=== PATIENT | male | born 1940 | race Caucasian/White ===

== ENCOUNTER 2018-01-16 13:35 | Emergency (ER) | payer OTHER ==
[~2018-01-16] VITALS: Ht 170.2 cm; Wt 66.2 kg
[2018-01-16 13:38] VITALS: TEMP 36.8; Ht 170.2 cm; Wt 66.2 kg
--- NOTE | 2018-01-16 14:09 | EMERGENCY ROOM VISIT NOTE ---
History Report prepared by Christie: Nati Feldman Under the Supervision of: Dr. Tamir Santana M.D. First contact with patient: 13:42 Chief Complaint: GROIN PAIN Stated Complaint: GROIN PAIN History of Present Illness The patient is a 77 year old white male with a past medical history of Parkinson 's and back surgery who presents to the ED with a cc of constant groin pain beginning 6 days ago. He notes the pain began 1 day after a fall down 6 steps onto his backside. The patient reports the pain worsens when weight bearing, and makes it difficult to walk. He states he had major back surgery over 2 days at [facility] 3 months ago, with no complications. The patient notes he has been experiencing dizziness and tremors recently, and was recently diagnosed with Parkinson's, which he takes medication 4x a day for. Source of History: patient Onset: 6 days Position: pelvis (groin) Timing: constant Modifying Factors (Worsening): other (weight bearing) Note: Associated symptoms: chronic dizziness and tremors Review of Systems See HPI for pertinent positives and negatives. A total of ten systems were reviewed and were otherwise negative. Past Medical & Surgical Medical Problems: (1) Groin pain (2) Parkinson disease Surgical Problems: (1) History of back surgery Family History No pertinent family history stated. Social History Smoking Status: Never Smoker Smokeless Tobacco Use: No Marital Status: Housing Status: lives with family Occupation Status: retired Current/Historical Medications Scheduled Carbidopa-Levodopa (Sinemet 25MG/250MG), 1 TAB PO QID Finasteride (Proscar), 1 TAB PO DAILY Folic Acid (Folic Acid), 1 TAB PO DAILY Omeprazole (Prilosec), 60 MG PO DAILY Rosuvastatin Calcium (Crestor), 1 TAB PO DAILY Allergies Coded Allergies: No Known Allergies (Unverified , 01/16/18) Physical Exam Vital Signs Date Time Temp Pulse Resp B/P (MAP) Pulse Ox O2 Delivery O2 Flow Rate FiO2 01/16/18 14:54 62 17 134/76 98 01/16/18 14:38 62 17 134/76 98 Room Air 01/16/18 13:38 36.8 74 17 106/70 95 Room Air Physical Exam GENERAL: Awake, alert, well-appearing, NAD HENT: Normocephalic, atraumatic. EYES: Normal conjunctiva. Sclera non-icteric. PERRL. No anisocoria. NECK: Supple. No nuchal rigidity. FROM. RESPIRATORY: CTAB, no rhonchi, wheezing, crackles CARDIAC: RRR, no MRG ABDOMEN: Soft, NTND, BS+ MSK: No chest wall TTP, no LE edema. Mild reproducible pain over inferior portion of R pelvis, NEURO: GCS 15, CN 2-12 intact, moves all 4s on command SKIN: No rash or jaundice noted. Bronzed appearance. : Circumcised, no penile or scrotal or testicular pain or swelling. No palpable hernias or masses present. Medical Decision & Procedures ED Course 1356: The patient was evaluated in room B10. A complete history and physical exam was performed. I discussed results and discharge instructions: the patient verbalized understanding and agreement. He is ready for discharge. Medical Decision Nursing notes reviewed. Ancillary studies and prior records reviewed. The patient is a 77 year old white male with a past medical history of Parkinson's and back surgery who presents to the ED with a cc of constant groin pain beginning 6 days ago. Etiologies such as fracture, dislocation, neurovascular compromise, compartment syndrome, soft tissue injury, as well as others were entertained. The chart was completed utilizing [employer] Speech voice recognition software. Grammatical errors, random word insertions, pronoun errors, and incomplete sentences are an occasional consequence of this system due to software limitations, ambient noise, and hardware issues. Any formal questions or concerns about the content, text, or information contained within the body of this dictation should be directly addressed to the physician for clarification. Patient was seen and evaluated the bedside. Patient was complaining some mild right-sided groin pain is concerned about a possible hernia. The patient states that it was worsened with ambulation. On exam the patient does not have any overt masses. The patient has had a recent bowel movement without any complication and without any blood. Patient does not complain of any nausea, vomiting, or fever. The patient states that his pain began approximately 1 day after having a fall. The patient states that he did not strike his head this is approximate 1 week since then. I do not believe he requires a CT scan of the head or neck at this time given the duration from incident to presentation. On exam the patient does not have any overt masses that are palpable. Patient does not complain of any penile or scrotal pain. The patient does complain of some mild pain on the midportion of the lower pelvis. The patient declined any imaging or blood work at this time. Patient was advised for [id number] treatments and was told return if any worsening symptoms. Patient was given strict follow-up, discharge, and return precautions. All questions were answered. Patient was deemed suitable for outpatient follow-up at this time. Patient agreed with the plan of care and was safely discharged home. Medication Reconcilliation Current Medication List: was personally reviewed by me Blood Pressure Screening Patient's blood pressure: Normal blood pressure Blood pressure disposition: Did not require urgent referral Impression Primary Impression: Groin pain Additional Impression: Sprain of groin Scribe Attestation The scribe's documentation has been prepared under my direction and personally reviewed by me in its entirety. I confirm that the note above accurately reflects all work, treatment, procedures, and medical decision making performed by me. Departure Information Dispostion Home / Self-Care Forms HOME CARE DOCUMENTATION FORM, IMPORTANT VISIT INFORMATION, WORK / SCHOOL INSTRUCTIONS Patient Instructions ED RICE, ED Strain Muscle Ext, [facility] Additional Instructions Please return to the emergency department if you have worsening or recurrent symptoms not amenable to at-home treatment. Please call for a follow-up appointment with her primary care physician. Please take your medications as prescribed. If you have other concerns and/or complaints please feel free to also call your primary care physician's office or return the ED for further evaluation, management, and treatment. Take your medications as prescribed. You have been examined and treated today on an emergency basis only. This is not a substitute for, or an effort to provide, complete comprehensive medical care. It is impossible to recognize and treat all injuries or illnesses in a single emergency department visit. It is therefore important that you follow up closely with [facility], your PCP, and/or your specialist(s). Call as soon as possible for an appointment. Thank you for your time and consideration. I look forward to speaking with you again soon. Please don't hesitate to call us if you have any questions. Problem Qualifiers
[2018-01-16] MEDS ORDERED: PRLSR20 PO (14:16)
[2018-01-16] MEDS ORDERED: ROSU5TAB PO (14:16)
[2018-01-16] MEDS ORDERED: FINA5TAB PO (14:16)
[2018-01-16] MEDS ORDERED: FLV1 PO (14:16)
[2018-01-16] MEDS ORDERED: CARB25TA PO (14:16)
[2018-01-16 14:54] VITALS: BP 134/76; PULSE 62; O2SAT 98
== END 2018-01-16 14:54 | disposition home or self-care (01) ==
LOC: C.EDB 13:38
DX: S33.8XXA Sprain of other parts of lumbar spine and pelvis, initial encounter (principal); W10.9XXA Fall (on) (from) unspecified stairs and steps, initial encounter; G20 Parkinson's disease; Z79.899 Other long term (current) drug therapy